=== PATIENT | female | born 1980 | race Caucasian/White ===

== ENCOUNTER 2022-09-24 09:14 | Emergency (ER) | payer OTHER ==
[2022-09-24] MEDS ORDERED: Ringers Lactate 1,000 ML IV ONE (10:22)
[2022-09-24 10:23] LABS: Absolute Lymphocytes (CBC) 1.8 K/uL (0.7-4.9); Hematocrit 41.3 % (39.6-49.0); Lymphocytes % 16.7 % (15.3-44.8); MCV 93.6 fL (80-100); MPV 7.5 fL (7.6-11.3); RBC Red Blood Cell Count 4.42 M/uL (4.33-5.43)
[2022-09-24 10:31] LABS: Specific Gravity < 1.005 (1.005-1.030); Urine Bacteria <20 /HPF (<20); Urine Bilirubin NEGATIVE (Negative); Urine Blood 3+ (OVER) (Negative); Urine Clarity Clear (Clear); Urine Color Colorless (Yellow); Urine Glucose NEGATIVE (Negative); Urine Protein 1+ (Negative); Urine RBC 21-50 /HPF (None Seen); Urine Urobilinogen Normal (Normal)
[2022-09-24 10:32] LABS: Specific Gravity 1.004 (1.005-1.030)
[2022-09-24 10:38] LABS: Potassium 4.1 mEq/L (3.5-5.1)
--- NOTE | 2022-09-24 13:33 | RAD REPORT ---
EXAM DESCRIPTION: CT - Stone Protocol - 09/24/2022 1:24 pm CLINICAL HISTORY: Flank pain. FLANK PAIN COMPARISON: No comparisons TECHNIQUE: Axial images were obtained without oral or IV contrast. Lack of contrast limits solid org an and vascular assessment. The [id number] spans the entirety of the system partially obscuring uppermost abdomen and lung bases. Coronal reformatted images were obtained and reviewed. All CT scans are performed using dose optimization technique as appropriate and may include automated exposure control or mA/KV adjustment according to patient size. FINDINGS: Calcified granuloma right lung base. The lungs are otherwise clear. Imaged portions of the liver and spleen show no suspicious findings on non-contrast imaging. The panc reas and adrenal glands are normal. No pathologic lymphadenopathy in the abdomen or pelvis. Tiny calcification inferior right kidney. No additional tract stone or hydronephrosis. No bowel obstruction, free air, free fluid or abscess. Normal appendix noted. No significant bony abnormality. IMPRESSION: Small stone inferior right kidney. No hydronephrosis.
--- NOTE | 2022-09-24 13:43 | EDPHYS ---
Physician Documentation [facility] Name: Caroline Alarcon Age: 41 yrs Sex: Female : 1980 Arrival Date: 09/24/2022 Time: 09:14 Bed 15 Private MD: ED Physician Isrrael Ross HPI: 09/24 09:26 This 41 yrs old Female presents to ER via EMS with complaints of Back pain. jmm 13:40 This 41 yrs old Female presents to ER via EMS with complaints of back pain. jmm 09:26 The patient presents with pain that is acute. The symptoms are located in the low back. jmm Onset: The symptoms/episode began/occurred gradually. Is a 41-year-old female with history of hypertension the presents emerged part with with complaints of back pain and generalized body aches. . 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 - Social history:: Smoking status: Patient reports the use of cigarette tobacco products, Patient uses street drugs, cocaine, marijuana, Methamphetamine (Meth). ROS: 09:26 Constitutional: Positive for body aches. jmm 09:26 Back: Positive for pain with movement. 09:26 All other systems are negative. Exam: 09:26 Constitutional: This is a well developed, well nourished patient who is awake, alert, jmm and in no acute distress. Head/Face: atraumatic. Eyes: EOMI, no conjunctival erythema appreciated ENT: Moist Mucus Membranes Neck: Trachea midline, Supple Chest/axilla: Normal chest wall appearance and motion. Cardiovascular: Regular rate and rhythm. No edema appreciated Respiratory: Normal respirations, no respiratory distress appreciated Abdomen/GI: Non distended 09:26 Skin: General appearance color normal MS/ Extremity: Moves all extremities, no obvious deformities appreciated, no edema noted to the lower extremities Neuro: Awake and alert Psych: Behavior is normal, Mood is normal, Patient is cooperative and pleasant 09:26 Back: CVA tenderness, that is mild, is noted bilaterally. Vital Signs: 10:13 BP 150 / 107; Pulse 67; Resp 16; Temp 98.2; Pulse Ox 100% on R/A; iw 14:39 BP 147 / 102; Pulse 70; Resp 17; Temp 98.1; Pulse Ox 98% ; rs5 17:24 BP 152 / 101; Pulse 68; Resp 18; Pulse Ox 99% on R/A; eh3 18:30 BP 160 / 105; eh3 19:30 BP 141 / 113; eh3 21:25 BP 151 / 94; Pulse 59; Resp 18; Temp 98.9(IR); Pulse Ox 97% on R/A; eh3 22:52 BP 139 / 84; eh3 MDM: 09:26 Patient medically screened. [facility] 13:42 Differential diagnosis: Pyelonephritis, UTI, ureterolithiasis. Data reviewed: vital [facility] signs, nurses notes, lab test result(s), radiologic studies, CT scan. 13:53 ED course: I discussed labs and imaging findings with the patient. Patient stated she [facility] were to be discharged she would walk on to the street until someone ran her over. Patient states that she is suicidal. Patient states that she was initially found by police while sitting in the road for the same reason.. 09/24 09:27 Order name: CBC with Diff; Complete Time: 10:26 [facility] 09/24 09:27 Order name: BMP; Complete Time: 10:39 [facility] 09/24 09:27 Order name: Urinalysis w/ reflexes; Complete Time: 10:36 [facility] 09/24 09:29 Order name: PREGU; Complete Time: 10:36 [facility] 09/24 11:06 Order name: Test, Serum; Complete Time: 12:27 09/24 13:52 Order name: Acetaminophen; Complete Time: 15:38 [facility] 09/24 13:52 Order name: ETOH Level; Complete Time: 15:38 [facility] 09/24 13:52 Order name: PT-INR; Complete Time: 23:52 [facility] 09/24 13:52 Order name: Ptt, Activated; Complete Time: 23:52 [facility] 09/24 13:52 Order name: Salicylate; Complete Time: 15:38 [facility] 09/24 13:52 Order name: Urine Drug Screen; Complete Time: 23:52 [facility] 09/24 10:37 Order name: CT Stone Protocol; Complete Time: 13:35 [facility] 09/24 13:52 Order name: EKG; Complete Time: 13:53 [facility] 09/24 14:20 Order name: Diet Finger Food; Complete Time: 14:21 [facility] 09/24 09:27 Order name: Saline Lock; Complete Time: 10:14 [facility] 09/24 13:52 Order name: EKG - Nurse/Tech; Complete Time: 14:19 [facility] 09/24 13:52 Order name: Labs collected and sent; Complete Time: 14:52 [facility] 09/24 13:52 Order name: Suicide Screening ([place]); Complete Time: 14:50 [facility] Administered Medications: 10:21 Drug: Lactated Ringers Solution IV 1000 ml Route: IV; Rate: 1000 bolus; Site: right iw antecubital; 14:00 Follow up: IV Status: Completed infusion; IV Intake: 1000ml [facility] 17:43 Drug: cloNIDine PO 0.1 mg Route: PO; 3 18:30 Follow up: Response: Blood pressure is unchanged [facility] 19:49 Drug: Nicoderm CQ Transdermal Patch 21 mg/24 hr 21 mg Route: Transdermal; Site: [facility] affected area; 21:47 Not Given (Patient Refused): Acetaminophen PO 1000 mg PO once eh3 22:00 Drug: HydrALAZINE PO 50 mg Route: PO; 3 22:53 Follow up: Response: Blood pressure is lowered 3 22:00 Drug: Ibuprofen PO 800 mg Route: PO; 3 22:53 Follow up: Response: Pain is decreased 3 22:00 Drug: Ondansetron PO 4 mg Route: PO; 3 22:53 Follow up: Response: No adverse reaction 3 Disposition: 15:29 Co-signature as Attending Physician, Jose Miguel JACOBSEN was immediately available on-site ms3 in the Emergency Department for consultation in the care of the patient. Disposition Summary: 09/24/22 15:24 Transfer Ordered Transfer Location: Psych Facility [facility] Reason: Higher level of care jm Condition: Stable(09/24/22 15:24) jmm Problem: new jmm Symptoms: are unchanged jm Accepting Physician: Psychiatry(09/25/22 00:00) 3 Diagnosis - Suicidal ideations jmm Forms: - Medication Reconciliation Form jmm - SBAR form jm Signatures: Dispatcher [employer] EDJuancarlos Vieyra PA PA jmm Williams, Irene RN RN Jose Miguel Shaver DO DO ms3 Kalyn Argueta, RN RN eh3 Isrrael Ross MD MD sp4 Corrections: (The following items were deleted from the chart) 13:52 13:43 Home [facility] 13:43 Stable [facility] 13:43 Calculus of kidney [facility] 13:43 Weakness [facility] 13:43 UTI/ Urinary tract infection, site not specified [facility] 13:42 I considered the following discharge prescriptions or medication management in [facility] the emergency department Medications were administered in the Emergency Department. See [facility] 13:42 Counseling: I had a detailed discussion with the patient and/or guardian [facility] regarding: the historical points, exam findings, and any diagnostic results supporting the discharge/admit diagnosis, lab results, radiology results, the need for outpatient follow up, to return to the emergency department if symptoms worsen or persist or if there are any questions or concerns that arise at home, [facility] 09/25 00:00 09/24 15:24 Psychiatry [facility] eh3
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
[2022-09-24] MEDS ORDERED: cloNIDine HCL 0.1 MG TAB ONE (17:46)
[2022-09-24 19:03] LABS: Protime INR 0.85
[2022-09-24] MEDS ORDERED: NICOTINE 21 MG/PAT TD ONE (19:51)
[2022-09-24] MEDS ORDERED: HYDRALAZINE HCL 25 MG TABLET ONE (21:59)
[2022-09-24] MEDS ORDERED: IBUPROFEN 400 MG TAB ONE (21:59)
[2022-09-24] MEDS ORDERED: ONDANSETRON 4 MG (ODT) TAB ONE (21:59)
[2022-09-24 22:26] LABS: Barbiturates NEGATIVE (NEGATIVE); Benzodiazepines NEGATIVE (NEGATIVE); Cocaine POSITIVE (NEGATIVE); METHAMPHETAM NEGATIVE (NEGATIVE); Methadone NEGATIVE (NEGATIVE); Opiates NEGATIVE (NEGATIVE); Phencyclidine NEGATIVE (NEGATIVE); THC Cannibis POSITIVE (NEGATIVE)
[2022-09-25 01:01] VITALS: TEMP 98.9; O2SAT 97
[2022-09-25 01:02] VITALS: BP 139/84
--- NOTE | 2022-09-25 07:48 | EKG ---
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
== END 2022-09-25 ==
LOC: ER 09:14 → EDSEX 09:14 → ER 09-25
DX: R45.851 Suicidal ideations (principal); M54.50 Low back pain, unspecified; M79.10 Myalgia, unspecified site; I10 Essential (primary) hypertension; Z88.3 Allergy status to other anti-infective agents
CPT/HCPCS: 96361; 93005; 85025; 81001; 80048; 36415; 84703; 81025; 85610; 85730; 80307; 76377; 74176; 96360; 99285; Q0162; J7120; G0480 ×3